=== PATIENT | male | born 1995 | race Hispanic/Latino ===

== ENCOUNTER 2017-12-25 15:05 | Emergency (ER) | payer OTHER ==
[2017-12-25 15:11] VITALS: BMI 25.1
[2017-12-25 15:15] VITALS: O2SAT 98
--- NOTE | 2017-12-25 15:40 | ED PDOC ---
HPI: CCC, URI, Sore Throat Time Seen by Provider: 12/25/17 15:18 Chief Complaint (Nursing): ENT Problem Chief Complaint (Provider): Sore throat, fever, rash History Per: Patient History/Exam Limitations: no limitations Onset/Duration Of Symptoms: Days (x4) Current Symptoms Are (Timing): Still Present Location Of Pain: Throat, Diffuse Myalgias Additional Complaint(s): 22-year-old male presents to the ED complaining of sore throat, generalized body aches, and tactile fever for 4 days. States he used an online doctor willis for a virtual visit and was prescribed Zithromax, which he has taken for 3 days. Patient reports no improvement despite taking antibiotic as prescribed. Yesterday he developed a rash to his palms, soles, and around his mouth. no redness to eyes, no rash to torso or genital areas. He reports taking Motrin with mild relief. Otherwise denies any chills, headache, nausea, vomiting, diarrhea, or abdominal pain. Past Medical History Reviewed: Historical Data, Nursing Documentation, Vital Signs Vital Signs: Last Vital Signs Temp 97.3 F L 12/25/17 15:11 Pulse 83 12/25/17 15:11 Resp 19 12/25/17 15:11 BP 126/83 12/25/17 15:11 Pulse Ox 98 12/25/17 15:43 - Medical History PMH: No Chronic Diseases - Family History Family History: States: No Known Family Hx - Social History Current smoker - smoking cessation education provided: No Alcohol: None Drugs: Denies - Home Medications Home Medications: Ambulatory Orders Medication Instructions Recorded Ibuprofen [Motrin] 600 mg PO Q6 #20 tab 12/25/17 Lidocaine 2% Viscous 15 ml TOP TID PRN #1 bottle 12/25/17 - Allergies Allergies/Adverse Reactions: Allergies Allergy/AdvReac Type Severity Reaction Status Date / Time amoxicillin Allergy RASH Verified 12/25/17 15:13 sulfamethoxazole Allergy RASH Verified 12/25/17 15:13 [From Bactrim] trimethoprim [From Bactrim] Allergy RASH Verified 12/25/17 15:13 Review of Systems ROS Statement: Except As Marked, All Systems Reviewed And Found Negative Constitutional: Positive for: Fever, Other (Diffuse bodyaches). Negative for: Chills ENT: Positive for: Throat Pain Gastrointestinal: Negative for: Nausea, Vomiting, Abdominal Pain, Diarrhea Skin: Positive for: Rash Neurological: Negative for: Headache Physical Exam - Reviewed Nursing Documentation Reviewed: Yes Vital Signs Reviewed: Yes - Physical Exam Appears: Positive for: Non-toxic, No Acute Distress Head Exam: Positive for: ATRAUMATIC, NORMOCEPHALIC Skin: Positive for: Warm, Dry, Rash (erythematous papules scattered to the palms , soles, and around mouth) Eye Exam: Positive for: Normal appearance ENT: Positive for: Tonsillar Swelling (Tonsillar erythema with Grade 2 hypertrophy), Other (Erythematous papules also noted to the hard and soft palate ). Negative for: Tonsillar Exudate Neck: Positive for: Normal, Painless ROM (with no adenopathy) Cardiovascular/Chest: Positive for: Regular Rate, Rhythm. Negative for: Murmur Respiratory: Positive for: Normal Breath Sounds. Negative for: Accessory Muscle Use, Respiratory Distress Extremity: Positive for: Normal ROM. Negative for: Pedal Edema, Deformity Neurologic/Psych: Positive for: Alert, Oriented (x3) - Laboratory Results Result Diagrams: 12/25/17 16:48 12/25/17 16:48 - ECG O2 Sat by Pulse Oximetry: 98 (RA) Pulse Ox Interpretation: Normal Medical Decision Making Medical Decision Making: Initial Impression: Rash to palms, soles, and around mouth Time: 15:36 Initial Plan: * CMP * CBC * Blood culture * Rapid strep test * [facility] [place] serology Scribe Attestation: Documented by Saige Travis, acting as a scribe for Radha Quigley PA-C. Provider Scribe Attestation: All medical record entries made by the Scribe were at my direction and personally dictated by me. I have reviewed the chart and agree that the record accurately reflects my personal performance of the history, physical exam, medical decision making, and the department course for this patient. I have also personally directed, reviewed, and agree with the discharge instructions and disposition. 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
[2017-12-25 16:58] LABS: BASO % 0.6 % (0.0-2.0); EOS # 0.1 K/uL (0.0-0.7); EOS % 2.4 % (0.0-4.0); HEMOGLOBIN 14.7 g/dL (12.0-18.0); LYMPH # 1.5 K/uL (1.0-4.3); LYMPH % 28.4 % (20.0-40.0); MEAN CORPUSCULAR HEMOGLOBIN 30.9 pg (27.0-31.0); MEAN CORPUSCULAR HGB CONC 34.7 g/dL (33.0-37.0); MEAN PLATELET VOLUME 8.3 fl (7.2-11.7); MONO # 0.5 K/uL (0.0-0.8); MONO % 10.1 % (0.0-10.0); NEUT # 3.1 K/uL (1.8-7.0); NEUT % 58.5 % (50.0-75.0); NRBC % 0.2 % (0.0-0.0); RBC 4.75 Mil/uL (4.40-5.90); RED CELL DISTRIBUTION WIDTH 12.6 % (11.5-14.5); WHITE BLOOD COUNT 5.2 K/uL (4.8-10.8)
[2017-12-25 17:08] LABS: ALB/GLOB RATIO 1.4 (1.0-2.1); ALT/SGPT 21 U/L (21-72); AST/SGOT 21 U/L (17-59); BLOOD UREA NITROGEN 12 mg/dl (9-20); CALCIUM 9.1 mg/dL (8.4-10.2); GFR AFRICAN-AMERICAN > 60; GFR NON-AFRICAN AMERICAN > 60
[2017-12-25 18:43] VITALS: BP 134/81; PULSE 78; RESP 18; TEMP 98
== END 2017-12-25 18:43 | disposition home or self-care (01) ==
LOC: H.ER 15:05
DX: B34.1 Enterovirus infection, unspecified (principal)